=== PATIENT | male | born 1980 | race Hispanic/Latino ===

== ENCOUNTER 2021-01-17 19:49 | Emergency (ER) | payer OTHER ==
[~2021-01-17] VITALS: Ht 180.3 cm; Wt 77.1 kg
[2021-01-17 20:33] LABS: BASOPHILS % (AUTO) 0.4 % (0.0-5.0); EOSINOPHILS % (AUTO) 0.2 % (0.0-8.0); HEMATOCRIT 42.3 % (42-54); LYMPHOCYTES % (AUTO) 17.6 % (21.0-51.0); MEAN CORPUSCULAR HEMOGLOBIN 30.9 pg (27.0-33.0); MEAN CORPUSCULAR HGB CONC 34.3 g/dL (32.0-36.0); MEAN CORPUSCULAR VOLUME 90.2 fL (79-99); MONOCYTES % (AUTO) 6.9 % (3.0-13.0); NEUTROPHILS % (AUTO) 74.4 % (40.0-77.0); PLATELET COUNT (AUTO) 171 K/uL (130-400); RED BLOOD CELL COUNT(AUTO) 4.69 MIL/uL (4.50-6.20); WHITE BLOOD COUNT (AUTO) 5.7 K/uL (4.8-10.8)
[2021-01-17 20:41] LABS: CREATININE 0.9 mg/dL (0.5-1.5); POTASSIUM 3.6 mmol/L (3.5-5.1)
[2021-01-17 20:46] LABS: ALBUMIN 3.1 g/dL (3.5-5.0); BILIRUBIN,TOTAL 0.5 mg/dL (0.2-1.0); TOTAL PROTEIN, SERUM 7.2 g/dL (6.0-8.3)
[2021-01-17 21:22] VITALS: BP 104/78
[2021-01-17] MEDS ORDERED: FAMOTIDINE 20MG TAB PO ONE (22:30)
[2021-01-17] MEDS ORDERED: ALBUTEROL INHALER 90MCG/INH IH ONE (22:30)
[2021-01-17] MEDS ORDERED: ASPIRIN 325MG EC TAB PO ONE (22:30)
[2021-01-17] MEDS ORDERED: HYDROCODONE/ACETAMINOPHEN 5/325 MG TAB PO ONE (22:30)
[2021-01-17] MEDS ORDERED: SOLU-MEDROL 125MG VIAL IVP ONE (23:00)
[2021-01-17 23:17] LABS: CRP QUANTITATIVE 147.1 mg/L (0.00-9.0)
[2021-01-17] MEDS ORDERED: SOLU-MEDROL 40MG VIAL ONE (23:28)
[2021-01-17] MEDS ORDERED: FAMOTIDINE 20MG TAB ONE (23:28)
[2021-01-17] MEDS ORDERED: ASPIRIN 325MG TAB ONE (23:29)
[2021-01-17] MEDS ORDERED: HYDROCODONE/ACETAMINOPHEN 5/325 MG TAB ONE (23:29)
[2021-01-17] MEDS ORDERED: ASPI-1005 PO (23:43)
[2021-01-17] MEDS ORDERED: FAMO-136 PO (23:43)
[2021-01-17] MEDS ORDERED: IVER3TAB PO (23:43)
[2021-01-17] MEDS ORDERED: PRED20 PO (23:43)
[2021-01-17 23:44] VITALS: BP 117/76
[2021-01-17] MEDS ORDERED: BENZ-17 PO (23:48)
[2021-01-18 00:21] VITALS: BP 117/76
== END 2021-01-18 00:22 | disposition home or self-care (01) ==
LOC: EDH 19:49
DX: U07.1 COVID-19 (principal); J12.82 Pneumonia due to coronavirus disease 2019; E11.65 Type 2 diabetes mellitus with hyperglycemia; Z79.52 Long term (current) use of systemic steroids; Z79.82 Long term (current) use of aspirin; Z79.899 Other long term (current) drug therapy
CPT/HCPCS: 36415; 71045; 80053; 82550; 82728; 83615; 84484; 85025; 85378; 85651; 86140; 93005; 96374; 99285; J2920

== ENCOUNTER 2022-09-28 17:49 | Emergency (ER) | payer OTHER ==
[~2022-09-28] VITALS: Ht 170.2 cm; Wt 81.6 kg
[~2022-09-28 17:49] MED LIST: ASPI-1005 PO; BENZ-17 PO; FAMO-136 PO; IVER3TAB PO; PRED20 PO
[2022-09-28 18:09] VITALS: BP 132/90
== END 2022-09-28 21:06 | disposition left against medical advice (07) ==
LOC: EDH 17:49
DX: R51.9 Headache, unspecified (principal); Z53.21 Procedure and treatment not carried out due to patient leaving prior to being seen by health care provider
CPT/HCPCS: 99281